=== PATIENT | male | born 1980 | race Caucasian/White ===

== ENCOUNTER → 2018-02-05 16:00 | Outpatient (CLI) | payer OTHER, SELFPAY | PROVIDERS: Family Provider Family Medicine; PCP Family Medicine; Visit Provider Nurse Practitioner Family | DX: M25.562 Pain in left knee (principal) | CPT/HCPCS: 73564 ==

== ENCOUNTER → 2018-06-22 15:46 | Outpatient (CLI) | payer OTHER, SELFPAY ==
[2013-07-09 07:32] VITALS: BMI 25.7
--- OUTSIDE RECORDS SUMMARY | 2018-08-25 03:57 | XMS RPT_ITS ---
:1980 Author Organization OHIP Care Team Providers Name Role Phone Neo Gagnon Attending Unavailable Neo Gagnon Referring Unavailable Kika Weiner Primary Care Unavailable Sam Bauer Attending Unavailable Sam Bauer Referring Unavailable Husam Christopher Primary Care Unavailable LILY JOSEPH Attending Unavailable LILY JOSEPH Attending Unavailable KEVIN WEINERER James Referring Unavailable LILY JOSEPH Referring Unavailable MENDOZA, NISHANT KAEL Attending Unavailable LILY JOSEPH Attending Unavailable [facility] Referring Unavailable KIKA WEINER Primary Care Unavailable LILY JOSEPH Attending Unavailable KEVIN WEINERER James Primary Care Unavailable KEVIN WEINERER James Referring Unavailable LILY JOSEPH Referring Unavailable HUSAM, CHRISTOPHER B Primary Care Unavailable HUSAM CHRISTOPHER B Primary Care Unavailable MENDOZA, NISHANT Attending Unavailable PROBLEMS PROBLEMS DATE TYPE CONDITION / CODE ATTENDING STATUS SOURCE 02/09/2018 Active Exhaustion due to MENDOZA, NISHANT Active [place] excessive exertion, [facility] Other initial encounter / [place] T73.3XXA(ICD-10) Repository 02/09/2018 Active Tremor, unspecified MENDOZA, NISHANT Active [place] / R25.1(ICD-10) [facility] Other [place] Repository 11/18/2017 Active Encounter for CHIGNIK, Active [place] sterilization / [facility] Other Z30.2(ICD-10) [place] Repository 10/21/2017 Active Encounter for other CHIGNIK, Active [place] general counseling [facility] Other and advice on [place] contraception / Repository Z30.09(ICD-10) 10/21/2017 Admitting Unknown / CHIGNIK, Active [facility] diagnosis UNK(Unknown) [facility] Repository PROCEDURES PROCEDURES No Procedure Records FoundRESULTS RESULTS Observed: 06/22/2018 Status: F Source: [place] CULTURE, THROAT 3:40 PM [facility] REPOSITORY Culture, Throat #2 Ampicillin can be used for Beta-Lactamase negative isolates. Trimeth/Sulfa, Chloramphenicol, Cefotaxime, Ciprofloxacin, Amoxicillin/Clavulanic Acid,and Oral 2nd/3rd Generation Cephlosporins are effective against both Beta-Lactamase positive and Beta-Lactamase negative isolates. ORGANISM 1: Streptococcus pneumoniae Amount Growth 1+ ORGANISM 2: Haemophilus influenzae Amount Growth 2+ Beta Lactamase Negative Streptococcus pneumoniae: REACTION Cefotaxime (other) $ S Cefotaxime (meningitis) $ <=0.12 S Ceftriaxone (Men)$ <=0.12 S Ceftriaxone (other dx) $ <=0.12 S Clindamycin $$ <=0.25 S Erythromycin $ <=0.12 S Levofloxacin $ 0.5 S Moxifloxicin *NF 0.12 S Tetracycline NF <=0.25 S Trimethoprim/Sulfametho $ <=10 S Vancomycin $ 0.25 S Penicilin (Menin) <=0.06 S Penicillin (pneumoniae) <=0.06 S Penicillin(oral) <=0.06 S (NF) indicates non-formulary drug at [facility]. Approval by Infectious Disease Specialist required before non-formulary drugs may be ordered and/or dispensed. * CLSI guidelines does not recommend testing of cephalosporins. This interpretation is deduced from Beta-lactam/penicillin results. Performed By: #### M100.1000 #### [facility] [address] [place], [address] ED PROV NOTE Observed: 02/09/2018 Status: COMPLETED Source: [place] 12:24 PM CLINIC OTHER CAMPUS REPOSITORY HNO ID: [id number] Author: Nishant Mendoza MD Service: Emergency Medicine Author Type: Physician Type: ED Provider Notes Filed: 02/09/2018 12:32 PM Note Text: ED Provider Note Patient Name: Ofelia Blanco SERVICE DATE: 02/09/18 History Patient presents with: Tremor Patient presents with fatigue, weakness and shaking/tremor. Initial weakness fatigue noted after running one week ago. He is preparing for a half marathon. He does report intermittent bifrontal head pain. He denied any ocular, visual or auditory symptoms. He denied trouble with speech or swallowing. He denied cardiac, respiratory or GI symptoms. He denied neurologic symptoms. He denied paresthesia, anesthesia or motor weakness. He denies heat or cold intolerance. No past medical history on file. PAST SURGICAL HISTORY Procedure Laterality Date - ORTHOPEDICS SURGERY HX right ACL No family history on file. Social History Social History Main Topics - Smoking status: Never Smoker - Smokeless tobacco: Never Used - Alcohol use Yes - Drug use: No - Sexual activity: Not on file ALLERGIES Allergen Reactions - Penicillin Hives Review of Systems Constitutional: Positive for activity change and fatigue. Negative for appetite change, chills and fever. HENT: Negative for ear pain, hearing loss, rhinorrhea, sinus pressure, sore throat, trouble swallowing and voice change. Eyes: Negative for photophobia, pain and visual disturbance. Respiratory: Negative for cough, chest tightness and shortness of breath. Cardiovascular: Negative for chest pain, palpitations and leg swelling. Gastrointestinal: Negative for abdominal pain, nausea and vomiting. Genitourinary: Negative for dysuria, frequency, hematuria and urgency. Musculoskeletal: Positive for myalgias. Negative for arthralgias and back pain. Myalgias upper extremity greater than lower extremity. Skin: Negative for rash. Allergic/Immunologic: Negative for immunocompromised state. Neurological: Positive for tremors, weakness and headaches. Negative for dizziness and numbness. Hematological: Does not bruise/bleed easily. Psychiatric/Behavioral: Negative for confusion. The patient is not nervous/anxious. Physical Exam BP 145/87 Pulse 65 Temp (Src) 96.4 (Temporal Artery) Resp 16 Ht 6' 2 (1.88m) Wt 220 lb (99.8kg) SpO2 97% BMI 28.23 kg/(m2). Physical Exam Constitutional: He is oriented to person, place, and time. He appears well-developed and well-nourished. No distress. HENT: Head: Normocephalic. Right Ear: External ear normal. Left Ear: External ear normal. Nose: Nose normal. Mouth/Throat: Oropharynx is clear and moist. Eyes: Pupils are equal, round, and reactive to light. Conjunctivae and EOM are normal. Right eye exhibits no discharge. Left eye exhibits no discharge. No scleral icterus. Neck: Normal range of motion. Neck supple. No JVD present. No tracheal deviation present. Cardiovascular: Normal rate, regular rhythm, normal heart sounds and intact distal pulses. No murmur heard. Pulmonary/Chest: Effort normal and breath sounds normal. No stridor. No respiratory distress. Abdominal: Soft. Bowel sounds are normal. He exhibits no mass. There is no rebound and no guarding. Musculoskeletal: Normal range of motion. He exhibits no edema or deformity. Lymphadenopathy: He has no cervical adenopathy. Neurological: He is alert and oriented to person, place, and time. He displays normal reflexes. No cranial nerve deficit or sensory deficit. He exhibits normal muscle tone. Coordination normal. Patient has a intention tremor. When he was navigating through his work out No tremor was noted. Furthermore, pain is finger and gait was observed with no abnormality. Skin: Skin is warm and dry. Capillary refill takes less than 2 seconds. No rash noted. He is not diaphoretic. No erythema. No pallor. Psychiatric: He has a normal mood and affect. His behavior is normal. Nursing note and vitals reviewed. Diagnostic Testing ED Labs Ordered and Reviewed BASIC METABOLIC PANEL (AK,AV,EU,FV,HL,NABEEL,MM,SP) MDRD GFR Procedures ED Course / Clinical Impression Clinical Impressions as of Feb 10 1232 Fatigue due to excessive exertion, initial encounter Tremor MDM / Disposition / Plan With recent history of running outside long-distance in preparation of half marathon and vague symptoms this may represent electrolyte abnormality. Since there is been no change in urine frequency or color doubt renal failure or rhabdomyolysis. We will obtain a BMP to evaluate for electrolyte abnormality and to determine if he has prerenal azotemia. SIGNATURE: MD Nihsant Whitlock MD 02/09/18 1232 ED NOTE Observed: 02/09/2018 Status: COMPLETED Source: [place] 11:40 AM CLINIC OTHER CAMPUS REPOSITORY HNO ID: [id number] Author: Jenna Krishnamurthy) VIC Knowles Service: Emergency Medicine Author Type: Registered Nurse Type: ED Notes Filed: 02/09/2018 11:47 AM Note Text: Patient states that he was training for a half marathon and last Friday when he finished running he had gotten a cramp in his right calf. Pt put his compression shocks on and Friday he was fine and had no pain at all. Pt began with left knee pain on Friday am when he woke up , went to see his doctor on fri and had an xray. Pt had no knee pain on Friday. Pt began with sweats on Friday. With shaking when trying to use his muscles per pt. Pt states that he is eating and drinking normally. BASIC PANEL Collected: 02/09/2018 Status: F Source: [facility] 11:40 AM HEALTH SYSTEM REPOSITORY TYPE CODE TESTS RESULT OUT OF REFERENCE UNITS RANGE LAB GNA(LOINC) 136-145 mEq/L Sodium Blood 137 LAB GK(LOINC) 3.5-5.1 mEq/L Potassium Blood 4.1 LAB GCL(LOINC) 98-107 mEq/L Chloride Blood 103 LAB GCO2(LOINC 21-32 mEq/L ) CO2 Blood 27 LAB GGLU(LOINC 70-99 mg/dL ) Glucose Blood 99 LAB GBUN(LOINC 7-18 mg/dL ) BUN Blood 9 LAB GCREA(LOIN 0.67-1.17 mg/dL C) Creatinine Blood 1.00 LAB GCA(LOINC) 8.5-10.1 mg/dL Calcium Blood 9.1 LAB GANGP(LOIN 8-16 C) Anion Gap 11 Performed By: #### GP8 #### [place] [address] MDRD EGFR Collected: 02/09/2018 Status: F Source: [facility] 11:28 AM HEALTH SYSTEM REPOSITORY TYPE CODE TESTS RESULT OUT OF RANGE REFERENCE UNITS LAB GGFRF(LOINC >60mL/min/1.73m ) 2 eGFR >60 Result Comment: If the patient is , multiply the result by 1.210. Performed By: #### GGFR #### [place] [address] ED NOTE Observed: 02/09/2018 Status: COMPLETED Source: [place] 11:19 AM CLINIC OTHER CAMPUS REPOSITORY HNO ID: [id number] Author: Anay (Rn) [place] Service: Emergency Medicine Author Type: Registered Nurse Type: ED Notes Filed: 02/09/2018 11:21 AM Note Text: Pt states he has been training for a half marathon for 3 months. Last Friday developed right calf pain then Friday developed left knee pain all of which have resolved. Since this past Friday morning has felt shakey with upper body fatigue. Denies cp KNEE 4 OR MORE Observed: 02/05/2018 Status: F Source: [place] 4:07 PM [facility] REPOSITORY [facility] Imaging Services [address] [place] [address] Knee 4 or More Views MR#: [id number] Acct: [id number] Name: OFELIA BLANCO Rep #: [id number] : 1980 M 38 From: Tony Diamond MD PCP: Kika Weiner MD Status: REG CLI Study: Knee 4 or More Views Date of Exam: 02/05/18 Exam# [id number] Ordering Dr: NEO GAGNON STUDY: X-RAY - LEFT KNEE REASON FOR EXAM: Male, 38 years old. PATIENT HAS HAD PAIN IN HIS LEFT KNEE SINCE YESTERDAY MORNING. PATIENT STATES HE HAS BEEN PREPARING FOR A MARATHON. TECHNIQUE: 4 view(s) of the knee. COMPARISON: None. FINDINGS: Normal visualized distal femur. Normal visualized proximal tibia and fibula. Normal proximal tibiofibular articulation. Normal medial femorotibial compartment. Normal lateral femorotibial compartment. Normal patellofemoral articulation. The soft tissue structures are unremarkable. RAD/Knee 4 or More Views IMPRESSION: Normal x-ray examination of the knee. Electronically Signed: Tony Diamond, at 16:24 EDT Tel , Service support , CC: Kika Weiner MD; NEO GAGNON Gusset Maker: Signed PROGRESS Observed: 10/21/2017 Status: COMPLETED Source: [place] 9:13 AM CLINIC OTHER CAMPUS REPOSITORY HNO ID: [id number] Author: Lily Joseph Service: (none) Author Type: Physician Type: Progress Notes Filed: 10/21/2017 9:15 AM Note Text: Ofelia Blanco Referred by: SELF 10/21/2017 CC: Desires permanent sterilization HPI: 37 year old male states he desire permanent surgical sterilization. Reports fathering 4 (2 boys, 2 girls, ages 0,2,4,6) children and expressly states he does not desire to father children in the future. Also with a family history of prostate cancer with his father. of other causes. Genitourinary history: Hx undescended testis: none Hx stone disease: none Hx UTI/prostatitis/epididimitis/STI: none ROS: Sexual frequency/libido: intact, no ED Urinary sx: none Hematuria: none No past medical history on file. No past surgical history on file. Current Outpatient Prescriptions: HYDROcodone-acetaminophen (NORCO) 5-325 mg per tablet Take 1-2 tablets by mouth every 8 hours as needed for Pain for up to 20 doses. Take as needed for pain. diazePAM (VALIUM) 10 mg tablet Take 1 tablet by mouth as directed for 1 day. Take one hour prior to procedure.Do not drive or operate a vehicle after taking! doxycycline monohydrate (MONODOX) 100 mg capsule Take 1 capsule by mouth twice daily for 3 days. No current facility-administered medications for this visit. Allergies: Penicillin Family Hx: Denies family history of genitourinary malignancy Social History Marital status: Spouse name: Years of education: Number of children: Social History Main Topics Smoking status: Never Smoker Smokeless tobacco: Never Used Alcohol use: Yes Drug use: No Other Topics Concern Caffeine Concern Yes Occupation/exposures: works in [employer] Review of Systems: Constitutional: No weakness, fever/chills, unexplained weight change Psychiatric: Stable mood Skin: No rashes or lesions HEENT: No blurred vision or double vision. No severe or worsening headaches.Neck: No masses or pain Chest: No shortness of breath or cough. No history of recurrent pneumonia, bronchitis, or sinustitis. CVS: No chest pains or palpatations. No history of cardiovascular disease. GI: No nausea, vomiting or abdominal pain Neurologic: No weakness or sensory changes : see above Musculoskeletal: Stable All other systems reviewed and noncontributory PE: vitals: see above General: Well masculinized, well nourished male Psych: euthymic, NAD Neuro: AANDOx3. Inguinal: No lesions, adenopathy, or hernias Phallus: normal, circumcised, no lesions Meatus: orthotopic, patent, no discharge Scrotum: no lesions, normal rugae Testes: Descended, nontender, and no masses bilaterally Epididymides: Normal Vas deferens: palpable bilaterally Assessment: 37 year old male desires vasectomy. The patient attests that he understood the No-Scalpel Vasectomy pamphlet. He was instructed to stop all NSAIDs, aspirin and other blood thinners 5 days prior to the vasectomy. He was instructed to shave entire front of scrotum to the base of the penis the morning of the vasectomy. Postprocedure care, expectations, and limitations were discussed. He voiced understanding of these instructions and stated his questions were answered. Plan: 1)Proceed to vasectomy I personally counseled this patient about the following and he voiced understanding: a) Vasectomy is a permanent and irreversible form of sterilization b) 1:1,000 rate of recanalization which can results in the return of sperm into the ejaculate after vasectomy c) Patient must use alternative form of control until he is notified that his postprocedure semen analysis contained no sperm. ASSESSMENT/PLAN: 1. Vasectomy evaluation - ICD9: V25.09, ICD10: Z30.09 - HYDROCODONE 5 MG-ACETAMINOPHEN 325 MG TABLET - DIAZEPAM 10 MG TABLET - SURGICAL PATHOLOGY - VASECTOMY - DOXYCYCLINE MONOHYDRATE 100 MG CAPSULE 2. Family history of prostate cancer - Recommend screening at age 40. Lily Joseph MD CNOV Observed: 10/21/2017 Status: COMPLETED Source: [place] 9:00 AM CLINIC OTHER CAMPUS REPOSITORY Office Visit (UROLAE) OFELIA BLANCO ([id number]) 1980 M Date Time Provider Department 10/21/17 9:00 AM LILY JOSEPH During your visit today, we recorded the following information about you: Blood pressure Weight Height 144/82 95.3 kg 1.88 m Lily Joseph MD 10/21/2017 9:10 AM Addendum Today we discussed your desire for sterilization. Get your prescriptions filled within 2 weeks. Shave your scrotum. Buy an athletic supporter as you'll want to wear it for around 2 weeks. Deborah will get you scheduled and I'll see you soon! Also I'd recommend a PSA and rectal exam starting at age 40 given your family history of prostate cancer. Lily Joseph MD 10/21/2017 9:15 AM Addendum Ofelia Blanco Referred by: SELF 10/21/2017 CC: Desires permanent sterilization HPI: 37 year old male states he desire permanent surgical sterilization. Reports fathering 4 (2 boys, 2 girls, ages 0,2,4,6) children and expressly states he does not desire to father children in the future. Also with a family history of prostate cancer with his father. of other causes. Genitourinary history: Hx undescended testis: none Hx stone disease: none Hx UTI/prostatitis/epididimitis/STI: none ROS: Sexual frequency/libido: intact, no ED Urinary sx: none Hematuria: none No past medical history on file. No past surgical history on file. Current Outpatient Prescriptions: HYDROcodone-acetaminophen (NORCO) 5-325 mg per tablet Take 1-2 tablets by mouth every 8 hours as needed for Pain for up to 20 doses. Take as needed for pain. diazePAM (VALIUM) 10 mg tablet Take 1 tablet by mouth as directed for 1 day. Take one hour prior to procedure.Do not drive or operate a vehicle after taking! doxycycline monohydrate (MONODOX) 100 mg capsule Take 1 capsule by mouth twice daily for 3 days. No current facility-administered medications for this visit. Allergies: Penicillin Family Hx: Denies family history of genitourinary malignancy Social History Marital status: Spouse name: Years of education: Number of children: Social History Main Topics Smoking status: Never Smoker Smokeless tobacco: Never Used Alcohol use: Yes Drug use: No Other Topics Concern Caffeine Concern Yes Occupation/exposures: works in [employer] Review of Systems: Constitutional: No weakness, fever/chills, unexplained weight change Psychiatric: Stable mood Skin: No rashes or lesions HEENT: No blurred vision or double vision. No severe or worsening headaches.Neck: No masses or pain Chest: No shortness of breath or cough. No history of recurrent pneumonia, bronchitis, or sinustitis. CVS: No chest pains or palpatations. No history of cardiovascular disease. GI: No nausea, vomiting or abdominal pain Neurologic: No weakness or sensory changes : see above Musculoskeletal: Stable All other systems reviewed and noncontributory PE: vitals: see above General: Well masculinized, well nourished male Psych: euthymic, NAD Neuro: AANDOx3. Inguinal: No lesions, adenopathy, or hernias Phallus: normal, circumcised, no lesions Meatus: orthotopic, patent, no discharge Scrotum: no lesions, normal rugae Testes: Descended, nontender, and no masses bilaterally Epididymides: Normal Vas deferens: palpable bilaterally Assessment: 37 year old male desires vasectomy. The patient attests that he understood the No-Scalpel Vasectomy pamphlet. He was instructed to stop all NSAIDs, aspirin and other blood thinners 5 days prior to the vasectomy. He was instructed to shave entire front of scrotum to the base of the penis the morning of the vasectomy. Postprocedure care, expectations, and limitations were discussed. He voiced understanding of these instructions and stated his questions were answered. Plan: 1)Proceed to vasectomy I personally counseled this patient about the following and he voiced understanding: a) Vasectomy is a permanent and irreversible form of sterilization b) 1:1,000 rate of recanalization which can results in the return of sperm into the ejaculate after vasectomy c) Patient must use alternative form of control until he is notified that his postprocedure semen analysis contained no sperm. ASSESSMENT/PLAN: 1. Vasectomy evaluation - ICD9: V25.09, ICD10: Z30.09 - HYDROCODONE 5 MG-ACETAMINOPHEN 325 MG TABLET - DIAZEPAM 10 MG TABLET - SURGICAL PATHOLOGY - VASECTOMY - DOXYCYCLINE MONOHYDRATE 100 MG CAPSULE 2. Family history of prostate cancer - Recommend screening at age 40. Lily Joseph MD Referring Provider: SELF [200] Allergies As of Date: 10/21/2017 Noted Allergy Reaction PENICILLIN 10/21/2017 4 - Hives Date Reviewed: 10/21/2017 Reviewed by: Lily Joseph - Fully Assessed Reason for Visit: Vasectomy-1 [118] Patient Conference [768] Primary Visit Diagnosis:Vasectomy evaluation [Z30.09] Order(s):HYDROcodone-acetaminophen (NORCO) 5-325 mg per tabletTake 1-2 tablets by mouth every 8 hours as needed for Pain for up to 20 doses. Take as needed for pain.Disp: 15 tabletRfl: 0 diazePAM (VALIUM) 10 mg tabletTake 1 tablet by mouth as directed for 1 day. Take one hour prior to procedure. Do not drive or operate a vehicle after taking!Disp: 1 tabletRfl: 0 SURGICAL PATHOLOGY [2317601] Order #: [id number] VASECTOMY [[id number]] Order #: [id number] doxycycline monohydrate (MONODOX) 100 mg capsuleTake 1 capsule by mouth twice daily for 3 days.Disp: 6 capsuleRfl: 0 Prescriptions as of 10/21/2017 Sig: HYDROCODONE 5 MG-ACETAMINOPHE* Take 1-2 tablets by mouth rupinder* DIAZEPAM 10 MG TABLET Take 1 tablet by mouth as dir* DOXYCYCLINE MONOHYDRATE 100 M* Take 1 capsule by mouth twice* Problem List As Of Date: 10/21/2017 (None) Other instructions from your clinician: Today we discussed your desire for sterilization. Get your prescriptions filled within 2 weeks. Shave your scrotum. Buy an athletic supporter as you'll want to wear it for around 2 weeks. Deborah will get you scheduled and I'll see you soon! Also I'd recommend a PSA and rectal exam starting at age 40 given your family history of prostate cancer. Prescriptions ordered this encounter Disp Refills Start End HYDROCODONE 5 MG-ACETAMINOPHEN 325 M* 15 t* 0 10/21/2017 11/04/2017 Class: Print RX Route: ORAL Sig: Take 1-2 tablets by mouth every 8 hours as needed for Pain for up to 20 doses. Take as needed for pain. DIAZEPAM 10 MG TABLET 1 ta* 0 10/21/2017 10/22/2017 Class: Print RX Route: ORAL Sig: Take 1 tablet by mouth as directed for 1 day. Take one hour prior to procedure. Do not drive or operate a vehicle after taking! DOXYCYCLINE MONOHYDRATE 100 MG CAPSU* 6 ca* 0 10/21/2017 10/24/2017 Class: Print RX Route: ORAL Sig: Take 1 capsule by mouth twice daily for 3 days. Disposition: Return in about 2 weeks (around 11/04/2017). Follow-up and Disposition History Recorded Encounter Status:Closed by LILY JOSEPH MD on 10/21/17 SURGICAL TISSUE EXAM Observed: 10/21/2017 Status: F Source: [facility] 12:00 AM HEALTH SYSTEM REPOSITORY Test performed at [place] [address] NAME: OFELIA BLANCO REQUESTING: LILY JOSEPH M.D. FINAL DIAGNOSIS: A) LEFT VAS DEFERENS, PARTIAL EXCISION - VAS DEFERENS SEGMENT, COMPLETELY TRANSECTED. B) RIGHT VAS DEFERENS, PARTIAL EXCISION - VAS DEFERENS SEGMENT, COMPLETELY TRANSECTED. OPERATIVE PROCEDURE: Elective sterilization CLINICAL INFORMATION: Vasectomy evaluation [Z30.09] GROSS DESCRIPTION: A) Left vas Received in formalin labeled left vas deferens is a tubular segment of white soft tissue measuring 2.0 x 0.3 x 0.3 cm. A pin-point lumen is present. A vendor representatives section is submitted in cassette A1. B) Right vas Received in formalin labeled right vas deferens is a tubular segment of white soft tissue measuring 2.0 x 0.3 x 0.3 cm. A pin-point lumen is present. A vendor representatives section is submitted in cassette B1. ARH:isiah WALLACE M.D., PATHOLOGIST (Electronic signature on file) Signed out: 11/20/2017 16:18 PRINTED: 11/20/2017 Page 1 of 1 Performed By: #### SURG #### [place] [address] ALLERGIES ALLERGIES DATE TYPE / CODE NAME / CODE REACTION SEVERITY SOURCE 10/21/2017 DRUG PENICILLIN HIVES [facility] INGREDI/419 [facility] [place] 321074[facility] 06/29/2013 Drug Penicillins/F0010 Rash Unknown [place] Allergy/416 [id number](RXNORM) [facility] 278985([facility] ED CT) Repository NG/[id number] PENICILLIN [facility] 6([facility] CT) Repository ENCOUNTERS ENCOUNTERS ADMIT/DISCHARGE ACCOUNT NUMBER ADMITTING ENCOUNTER LOCATION SOURCE CLASS 06/22/2018 [id number] Ambulatory [facility] ding:LABSPEC Repository 02/09/2018/02/10/20 [id number] Emergency [address] Other [place] Repository 02/09/2018/02/10/20 [id number] Emergency [address] MEDICAL Repository [place] : EDBed: 02/05/2018 [id number] Ambulatory [facility] ding:MTRAD Repository 11/18/2017/11/19/19 [id number] Ambulatory [address] Repository 11/18/2017/11/19/19 [id number] Ambulatory [address] MEDICAL Repository CENTERBuildi ng:URAE 10/21/2017/10/22/19 [id number] Ambulatory [address] Repository 10/21/2017/10/22/19 [id number] Ambulatory [address] MEDICAL Repository CENTERBuildi ng:URAE 10/21/2017 [id number] Ambulatory [facility] Repository 10/21/2017/10/22/19 [id number] Ambulatory [address] MEDICAL Repository CENTERBuildi ng:AKLB PAYERS PAYERS ENCOUNTER GUARANTOR PAYER SUBSCRIBER SOURCE 06/22/2018 OFELIA [id number] [facility] Insurance:MEDICAL BOYDDOB: [facility] [id number] Hospital [address]Vdf: [phone]) Number: Repository [phone] ) [id number] Date:[id number], [place] [address]NX: 06/22/2018 Secondary NOT GIVENUNK [place] Insurance:SELF PAY [place] Number: Effective Repository Date:2018-06-22 02/09/2018 OFELIA OLIVERDDOB: Primary Insurance:MMO [facility] SUPERMED PLUSPolicy BOYDDOB: [facility] JACOB DRNEW Number: [id number] Repository [place] [id number]: [phone]) Date: [phone] (HP) 02/05/2018 Ofelia [id number] Primary JEANNE [place] Jacob Ryan Insurance:MEDICAL BOYDDOB: [facility] [id number] Hospital [address]Fiz: ([phone]) Number: Repository [phone] () [id number] Date:[id number], [place] [address]FL: 02/05/2018 Secondary NOT GIVENUNK [place] Insurance:SELF PAY [facility] Number: Effective Repository Date:2018-02-05 11/18/2017 OFELIA OLIVERDDOB: Primary Insurance:O [facility] SUPERMED PLUSPolicy BOYDDOB: [facility] JACOB KHUSHBUW Number: [id number] Repository [place] [id number]: ([phone]) Date: [phone] (HP) 10/21/2017 OFELIA OLIVERDDOB: Primary Insurance:O [facility] SUPERMED PLUSPolicy BOYDDOB: [facility] JACOB RYAN Number: [id number] Repository [place] [id number]: (330) Date: [phone] (HP) 10/21/2017 OFELIA DURANOB: Primary Insurance:O [facility] SUPERMED PLUSPolicy BOYDDOB: [facility] JACOB NEW Number: [id number] Repository [place], [place] [id number]: ([phone]) Date: [phone] ()
== END ==
PROVIDERS: Family Provider Family Medicine; PCP Family Medicine; Referring Provider Otolaryngology Otolaryngology/Facial Plastic Surgery; Visit Provider Otolaryngology Otolaryngology/Facial Plastic Surgery
DX: J02.9 Acute pharyngitis, unspecified (principal)
CPT/HCPCS: 87070; 87077; 87186

== ENCOUNTER → 2022-05-06 | Outpatient (CLI) | payer OTHER, SELFPAY | END | disposition home or self-care (01) | PROVIDERS: PCP Family Medicine; Visit Provider Otolaryngology Otolaryngology/Facial Plastic Surgery | DX: J02.9 Acute pharyngitis, unspecified (principal) | CPT/HCPCS: 87070 ==

== ENCOUNTER → 2023-10-31 | Outpatient (CLI) | payer OTHER, SELFPAY | END | disposition home or self-care (01) | PROVIDERS: PCP Family Medicine; Referring Provider Family Medicine; Visit Provider Family Medicine | DX: M10.9 Gout, unspecified (principal) | CPT/HCPCS: 36415; 84550 ==